=== PATIENT | male | born 1965 | race Caucasian/White ===

== ENCOUNTER 2019-09-25 10:02 | Day surgery (SDC) | payer OTHER ==
[~2019-09-25 10:02] MED LIST: LACTATED RINGERS 1,000 ML IV SCH
[2019-09-25] MEDS ORDERED: LIDOCAINE 1% (10MG/ML) FOR IV START INTRADERMA ONE (10:48)
[2019-09-25] MEDS ORDERED: PROPOFOL 10 MG/ML 20 ML VIAL IV ONE (11:20)
[2019-09-25] MEDS ORDERED: LIDOCAINE 1% INJ 10MG/ML (20 ML MDV) ONE (11:20)
[2019-09-25] MEDS ORDERED: LACTATED RINGERS 1,000 ML IV ONE (11:58)
--- NOTE | 2019-09-25 11:58 | P.PCN ---
Date of Procedure: 09/25/19 Description of Procedure: BRIEF HISTORY: Patient is a 54-year-old male presenting for outpatient colonoscopy for personal history of colon polyps. Patient denies any change in bowel habits, rectal bleeding or abdominal pain. Family history of colon cancer in his father. Last colonoscopy 5 years ago. PROCEDURE PERFORMED: Colonoscopy. PREOPERATIVE DIAGNOSIS: Personal history of colon polyps, last colonoscopy 5 years ago, family history of colon cancer in his father. ESTIMATED BLOOD LOSS: Minimal. IV sedation per Anesthesia. PROCEDURE: After informed consent was obtained, the patient, was brought into the endoscopy unit. IV sedation was administered by Anesthesia under continuous monitoring. Digital rectal examination was normal. Initially the Olympus pediatric-190 flexible video colonoscope was then inserted in the rectum, gradually advanced into the cecum without any difficulty. Careful examination was performed as the scope was gradually being withdrawn. Ileocecal valve and the appendiceal orifice were visualized and appeared normal. Prep was excellent. Mucosa of the cecum, ascending colon, transverse colon, descending colon, sigmoid colon, and rectum appeared normal. Retroflexion was performed in the rectum and no lesions were seen. The patient tolerated the procedure well. IMPRESSION: Normal-appearing colon from rectum to cecum. RECOMMENDATIONS: Findings of this examination were discussed with the patient. Okay to resume diet. Okay to resume medications. Would recommend repeat colonoscopy in 5 years for family history of colon cancer
[2019-09-26 09:20] VITALS: BMI 22.8
[2019-09-26 09:21] VITALS: BP 133/73; PULSE 68; RESP 16; TEMP 98
== END 2019-09-25 12:46 | disposition home or self-care (01) ==
LOC: ORWHC2ENDO 10:02
PROVIDERS: ATTEND Internal Medicine
DX: Z12.11 Encounter for screening for malignant neoplasm of colon (principal); Z86.010 Personal history of colon polyps; Z80.0 Family history of malignant neoplasm of digestive organs
CPT/HCPCS: J2001; J2704; G0105; 45378

== ENCOUNTER → 2020-11-10 | Outpatient (CLI) | payer OTHER ==
--- NOTE | 2020-11-11 02:29 | MR ---
EXAMINATION TYPE: MR knee RT wo con DATE OF EXAM: 11/10/2020 COMPARISON: None HISTORY: Right knee pain, no trauma. Multiplanar multiecho imaging of the right knee with no contrast. Posterior cruciate ligament is intact. There is some thinning and increased signal in the anterior cr uciate ligament. The collateral ligaments appear intact. There is small vertical tear through the medial meniscus on the medial aspect extending to the inferi or surface. There is also small horizontal tear of the posterior horn of the medial meniscus extendin g to the inferior surface. Lateral meniscus appears fairly normal. The patella is intact. There is very small knee joint effusio n. There is no evidence of a fracture. I see no focal bone destruction. IMPRESSION: There are horizontal and vertical tear through the medial meniscus as above. There is at least partia l tear of the anterior cruciate ligament. Complete tear is possible. Small knee joint effusion. No fr acture seen.
== END | disposition home or self-care (01) ==
LOC: RADMRIMAIN 20:06
PROVIDERS: ATTEND Orthopaedic Surgery
DX: M23.332 Other meniscus derangements, other medial meniscus, left knee (principal); S83.512A Sprain of anterior cruciate ligament of left knee, initial encounter

== ENCOUNTER → 2021-01-27 | Outpatient (CLI) | payer OTHER ==
[2021-01-27 11:35] LABS: Potassium 4.1 mmol/L (3.5-5.1)
[2021-01-27 12:19] LABS: Basophils % (A) 1 %; Eosinophils # (A) 0.2 k/uL (0-0.7); Eosinophils % (A) 4 %; HCT 44.3 % (39.0-53.0); HGB 14.9 gm/dL (13.0-17.5); Lymphocytes # (A) 1.8 k/uL (1.0-4.8); Lymphocytes % (A) 34 %; MCH 30.8 pg (25.0-35.0); MCHC 33.5 g/dL (31.0-37.0); MCV 91.8 fL (80.0-100.0); Mean Platelet Volume 7.7; Monocytes # (A) 0.3 k/uL (0-1.0); Monocytes % (A) 6 %; Neutrophils # (A) 2.8 k/uL (1.3-7.7); Neutrophils % (A) 54 %; Platelet Count 153 k/uL (150-450); RBC 4.83 m/uL (4.30-5.90); WBC 5.3 k/uL (3.8-10.6)
== END | disposition home or self-care (01) ==
LOC: LABPAT 09:48
PROVIDERS: ATTEND Orthopaedic Surgery
DX: Z01.818 Encounter for other preprocedural examination (principal); M23.91 Unspecified internal derangement of right knee
CPT/HCPCS: 80051; 85025; 93005

== ENCOUNTER 2022-09-10 00:20 | Emergency (ER) | payer OTHER ==
[2022-09-10 00:25] VITALS: RESP 18; TEMP 97.8
[2022-09-10] MEDS ORDERED: LIDOCAINE 1% INJ 10MG/ML (30 ML VIAL-PF) SQ ONE (00:34)
[2022-09-10] MEDS ORDERED: DIPH,PERTUS(ACELL)TETVAC-LF 0.5 ML VIAL IM ONE (00:34)
--- NOTE | 2022-09-10 00:45 | ED ---
Wound/Laceration HPI - General Chief Complaint: Wound/Laceration Stated Complaint: CUT ON RIGHT HAND Time Seen by Provider: 09/10/22 00:27 Source: patient Mode of arrival: ambulatory Limitations: no limitations - History of Present Illness Initial Comments: 57-year-old male presenting with chief complaint of laceration. Patient was washing dishes this evening when he broke a glass cup in his hand resulting in a laceration to the right middle finger. Patient has full range of motion. Unsure when his last tetanus was. - Related Data Home Medications Medication Instructions Recorded Confirmed Cider Vinegar [Apple Cider Vinegar] 300 mg PO DAILY 09/24/19 02/07/21 Multivit-Min/Folic/Vit K/Lycop 1 each PO DAILY 09/24/19 02/07/21 [Men's Multivitamin Tablet] Turmeric Root Extract [Turmeric] 500 mg PO DAILY 09/24/19 02/07/21 Vitamin B Complex 1 each PO DAILY 09/24/19 02/07/21 Aspirin/Acetaminophen/Caffeine 1 each PO DAILY PRN 02/07/21 02/07/21 [Excedrin Extra Strength Caplet] Ibuprofen [Motrin] 600 mg PO Q8HR PRN 02/07/21 02/07/21 SUMAtriptan succinate [Imitrex] 50 mg PO ONCE PRN 02/07/21 02/07/21 Allergies Allergy/AdvReac Type Severity Reaction Status Date / Time No Known Allergies Allergy Verified 09/10/22 00:25 Review of Systems ROS Statement: Those systems with pertinent positive or pertinent negative responses have been documented in the HPI. ROS Other: All systems not noted in ROS Statement are negative. Past Medical History Past Medical History: No Reported History History of Any Multi-Drug Resistant Organisms: None Reported Additional Past Surgical History / Comment(s): colonoscopy Past Anesthesia/Blood Transfusion Reactions: No Reported Reaction Past Psychological History: No Psychological Hx Reported Smoking Status: Never smoker Past Alcohol Use History: Occasional Past Drug Use History: None Reported - Past Family History Father Family Medical History: Cancer Additional Family Medical History / Comment(s): colon Mother Family Medical History: Deep Vein Thrombosis (DVT) General Exam Limitations: no limitations General appearance: alert, in no apparent distress Head exam: Present: atraumatic, normocephalic, normal inspection Eye exam: Present: normal appearance, EOMI. Absent: scleral icterus, periorbital swelling Neck exam: Present: normal inspection, full ROM Neurological exam: Present: alert, oriented X3, CN II-XII intact Psychiatric exam: Present: normal affect, normal mood Expanded Type of lesion: Present: laceration (2 cm flap laceration to the right middle finger) Course Vital Signs 09/10/22 00:22 Temperature 97.8 F Pulse Rate 71 Respiratory 18 Rate Blood Pressure 180/107 O2 Sat by Pulse 97 Oximetry Procedures - Laceration Laceration #1 Consent Obtained: verbal consent Indication: laceration Site: hand Size (cm): 2 Description: flap Depth: simple, single layer Anesthetic Used: lidocaine 1%, without epi Anesthesia Technique: local infiltration Pre-repair: wound explored, irrigated extensively Type of Sutures: nylon Size of Sutures: 4-0 Number of Sutures: 3 Technique: simple, interrupted Patient Tolerated Procedure: well Medical Decision Making - Medical Decision Making Was pt. sent in by a medical professional or institution (, PA, FINANCIAL SYSTEMS ADMINISTRATOR, urgent care, hospital, or intermediate...) When possible be specific @ -No Did you speak to anyone other than the patient for history (EMS, parent, family, police, friend...)? What history was obtained from this source @ -No Did you review nursing and triage notes (agree or disagree)? Why? @ -I reviewed and agree with nursing and triage notes Were old charts reviewed (outside hosp., previous admission, EMS record, old EKG, old radiological studies, urgent care reports/EKG's, intermediate records)? Report findings @ -No old charts were reviewed Differential Diagnosis (chest pain, altered mental status, abdominal pain women, abdominal pain men, vaginal bleeding, weakness, fever, dyspnea, syncope, headache, dizziness, GI bleed, back pain, seizure, CVA, palpatations, mental health, musculoskeletal)? @ -not applicable EKG interpreted by me (3pts min.). @ -As above X-rays interpreted by me (1pt min.). @ -None done CT interpreted by me (1pt min.). @ -None done U/S interpreted by me (1pt. min.). @ -None done What testing was considered but not performed or refused? (CT, X-rays, U/S, labs)? Why? @ -None What meds were considered but not given or refused? Why? @ -None Did you discuss the management of the patient with other professionals (professionals i.e. Dr., PA, FINANCIAL SYSTEMS ADMINISTRATOR, lab, RT, psych nurse, renal social worker, consultant electronics, teacher, deck officer, lining caser)? Give summary @ -No Was smoking cessation discussed for >3mins.? @ -No Was critical care preformed (if so, how long)? @ -No Were there social determinants of health that impacted care today? How? (Homelessness, low income, unemployed, alcoholism, drug addiction, transportation, low edu. Level, literacy, decrease access to med. care, residential, rehab)? @ -No Was there de-escalation of care discussed even if they declined (Discuss DNR or withdrawal of care, Hospice)? DNR status @ -No What co-morbidities impacted this encounter? (DM, HTN, Smoking, COPD, CAD, Cancer, CVA, ARF, Chemo, Hep., AIDS, mental health diagnosis, sleep apnea, morbid obesity)? @ -None Was patient admitted / discharged? Hospital course, mention meds given and route, prescriptions, significant lab abnormalities, going to OR and other pertinent info. @ -57-year-old male presenting with chief complaint laceration. Patient was washing a cup when it broke in his hand. 2 cm flap laceration to the middle finger. Laceration repair performed. Educated on wound care and signs of infection. Follow-up with PCP. Report back to ER with any new or worsening symptoms. Discussed return parameters and answered all questions. Patient conveyed verbal understanding and agreed to the plan. I discussed this case in detail with my attending Dr. Miller Undiagnosed new problem with uncertain prognosis? @ -No Drug Therapy requiring intensive monitoring for toxicity (Heparin, Nitro, Insulin, Cardizem)? @ -No Were any procedures done? @ -Laceration repair Diagnosis/symptom? @ -Laceration Acute, or Chronic, or Acute on Chronic? @ -Acute Uncomplicated (without systemic symptoms) or Complicated (systemic symptoms)? @ -uncomplicated Side effects of treatment? @ -No Exacerbation, Progression, or Severe Exacerbation? @ -No Poses a threat to life or bodily function? How? (Chest pain, [place], [place], pneumonia, PE, COPD, DKA, ARF, appy, cholecystitis, CVA, Diverticulitis, Homicidal, Suicidal, threat to staff... and all critical care pts) @ -No Disposition Clinical Impression: Laceration Disposition: HOME SELF-CARE Condition: Good Instructions (If sedation given, give patient instructions): Care For Your Stitches (ED), Finger Laceration (ED) Additional Instructions: Follow-up with PCP. Report back to ER with any new or worsening symptoms. Keep wound clean, dry, covered. Wash daily with soap and water. Monitor for signs of infection, including but not limited to redness, swelling, warmth, tenderness, discharge. Sutures may be removed in 10-14 days. Is patient prescribed a controlled substance at d/c from ED?: No Referrals: None,Stated [REFERRING] - 1-2 days Time of Disposition: 01:39
[2022-09-10 02:10] VITALS: BP 142/97; PULSE 68
== END 2022-09-10 02:10 | disposition home or self-care (01) ==
LOC: EC 00:20
DX: S61.212A Laceration without foreign body of right middle finger without damage to nail, initial encounter (principal); Z23 Encounter for immunization; W25.XXXA Contact with sharp glass, initial encounter; Y93.G1 Activity, food preparation and clean up
CPT/HCPCS: 90715; 99282; 90471; 12001; J2001

== ENCOUNTER → 2024-05-23 | Outpatient (CLI) | payer OTHER ==
--- NOTE | 2024-05-23 20:04 | MR ---
EXAMINATION TYPE: MR shoulder RT wo con DATE OF EXAM: 05/23/2024 7:54 PM COMPARISON: None. CLINICAL INDICATION: Male, 58 years old with history of M25.511 PAIN IN RIGHT SHOULDER, Right shoulde r pain x 4 mos after doing yard work. TECHNIQUE: Multiplanar multispin echo imaging of the right shoulder was performed. 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 There is no complete or bursal/articular sided partial rotator cuff tear. The subsc apularis constituent of the rotator cuff is intact. Bursa: No bursal effusion or thickening is seen. Musculature: There is no muscular tear, contusion, or atrophy. Acromioclavicular joint : Lateral downsloping of the acromion with subacromial spur resulting in mode rate impingement. Moderate AC joint arthropathy. Osseous structures : There are no fractures or regions of abnormal bone marrow signal intensity. Long biceps tendon : The biceps tendon is normally situated within the bicipital groove. No complete or partial biceps tendon tear is present. Glenohumeral Joint fluid : There is no glenohumeral joint effusion. Cartilage and Bone : No focal hyaline cartilage defects are noted. No Hill-Sachs, reverse Hill-Sachs, or bony Bankart lesions are seen. Labrum : There are no SLAP or soft tissue Bankart lesions. No paralabral cysts are seen. OTHER FINDINGS : none IMPRESSION: 1. Chronic tendinopathy supraspinatus tendon secondary to moderate impingement as discussed above. [facility], , 05/23/2024 8:02 PM
== END | disposition home or self-care (01) ==
LOC: RADMRIMAIN 19:02
PROVIDERS: ATTEND Orthopaedic Surgery
DX: M25.811 Other specified joint disorders, right shoulder (principal)